=== PATIENT | male | born 2000 | race Caucasian/White ===

== ENCOUNTER 2023-04-01 12:17 | Outpatient (AMB) | payer BC, SELFPAY ==
--- NOTE | 2023-04-01 12:17 | MHC.OFFWIV ---
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 Patient Tobacco Use Status: Never used Tobacco Allergies No Known Allergies Allergy (Verified 04/01/23 12:26) Do you need a note to return to daycare/school/sports/work: No HPI HPI Comments History of Present Illness Details This is a 22-year-old male with no stated past medical history presenting for evaluation of a pulsating sensation that he has had in his left ear intermittently over the past 6 months. Patient states that he used to grind his teeth which would cause pain in his TMJ however does not feel that he grinds his teeth anymore. Patient denies any hearing deficit or overt pain in his left ear. Patient also denies any previous head injury. Patient recently moved from [facility] and does not currently have a primary care provider or dentist in the area. [facility] Social History Patient Tobacco Use Status: Never used Tobacco Review of Systems Const All systems reviewed & are unremarkable except as noted in HPI and below Eyes Reports as per HPI ENT Reports no additional complaints, Reports as per HPI (pulsating sensation left ear), Reports Normal hearing present, Denies vertigo, Denies dizziness and Denies hearing loss Card Reports as per HPI Resp Reports as per HPI Neuro Reports Normal hearing present, Denies vertigo and Denies dizziness Physical Exam Vital Signs: Last Vital Signs Temp 96.4 F L 04/01/23 12:28 Pulse 92 04/01/23 12:28 BP 110/62 04/01/23 12:28 Pulse Ox 98 04/01/23 12:28 Oxygen Delivery Method Room Air 04/01/23 12:28 BMI result Body Mass Index 29.1 Const General: cooperative, healthy appearing, comfortable and no acute distress Nutritional Appearance: average body habitus Orientation/consciousness: patient oriented x3 Limitations: no limitations HEENT Head: Yes normal to inspection Ears: hearing grossly normal bilaterally, external ears normal, TM's normal bilaterally and other (no foreign body left ear) Mouth: Normal oral and palatal mucosa present and moist mucous membranes Teeth and gingiva: dentition normal and gingiva normal Throat: Yes posterior oropharynx normal Neuro General: patient oriented x3 Cranial nerves: Yes Normal hearing present Psych Appearance: grossly normal Mental Status: mental status grossly normal Insight: Good insight present (Psych) Judgement: Good judgement present (Psych) Assessment & Plan Assessment & Plan (1) Abnormal sensation in left ear: Code(s): H93.8X2 - Other specified disorders of left ear Plan: Patient will follow-up with his dentist for evaluation of bruxism and obtain a referral from his new PCP to see ENT if this sensation persists; no abnormalities noted in ears bilaterally. Coding Level of Care Code New Pt Level 3 (02988) Diagnoses Abnormal sensation in left ear H93.8X2 Time Spent (min) 15
[2023-04-01 12:28] VITALS: BP 110/62; PULSE 92; TEMP 35.8; O2SAT 98; BMI 29.1
== END 2023-04-01 13:05 | disposition home or self-care (01) ==
PROVIDERS: PCP Family Medicine; Visit Provider Physician Assistant
DX: H93.8X2 Other specified disorders of left ear (principal)
CPT/HCPCS: 99203

== ENCOUNTER 2023-08-16 14:50 | Outpatient (AMB) | payer BC, SELFPAY ==
--- NOTE | 2023-08-16 15:11 | A.OFFPC_ITS ---
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 Patient is concerned of shaking of his body. 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 He notes he does vape a lot. He notes symptoms improve when he stops vaping. He notes pain is not particularly painful but does concern him. He denies any cough. He does report some GERD. Pt reports EtOH and MJ use. He reports a tremor. He reports he drinks on the weekends, 6 for the whole weekend [facility] Medical History (Updated 08/16/23 @ 16:15 by Bear Lima) Depression Anxiety Acute eczema Testicular pain Surgical History (Updated 08/16/23 @ 15:20 by Christin Odonnell CMA) [place] teeth extracted Family History (Updated 08/16/23 @ 15:24 by Christin Odonnell CMA) Father Alcohol abuse Mother Alcohol abuse Social History (Updated 08/16/23 @ 15:33 by Christin Odonnell CMA) Household Members: Family Housing: Apartment Are you a primary care aid to a significant other at home: No Do you presently have visiting nurse or other home services: No 75 years or older and lives alone: No Alcohol intake: current Comment: on weekends Patient Tobacco Use Status: Never used Tobacco e-Cigarette/Vaping Use: Currently Using Substance Use Type: Crack/Cocaine, Marijuana and Opiates Substance Use Type Other:: no more cocaine or percocets since high school, MJ once in a while, still. Have you been hit, kicked, punched, or otherwise hurt by someone within the past year? If so, by whom?: No Do you feel safe in your current relationship?: Yes Is there a partner from a previous relationship who is making you feel unsafe now?: No Are you made to feel afraid or neglected: No Special trini needs: No Are you DNR?: No Healthcare Proxy: No service: No Current occupational status: employed Cognitive needs: No Hearing needs: No Vision needs: No Questionnaire PHQ-9 Over the last 2 weeks, how often have you been bothered by any of the following problems? 1. Little interest or pleasure in doing things: several days 2. Feeling down, depressed, or hopeless: several days 3. Trouble falling or staying asleep, or sleeping too much: not at all 4. Feeling tired or having little energy: not at all 5. Poor appetite or overeating: more than half the days 6. Feeling bad about yourself - or that you are a failure or have let yourself or your family down: several days 7. Trouble concentrating on things, such as reading the newspaper or watching television: nearly every day 8. Moving or speaking so slowly that other people could have noticed. Or the opposite - being so fidgety or restless that you have been moving around a lot more than usual: not at all 9. Thoughts that you would be better off or of hurting yourself in some way: not at all Total score: 8 Depression Screening Interpretation: Positive Depression Screening Done: Yes 98353 - PHQ-9 Billing: Yes Source: Developed by Drs. Larry Kang, Kareen Mason, Orlando Flores and colleagues, with an educational bre from [employer]. Thrive Questionnaire Date Thrive assessed: 08/16/23 I am a: Patient What is your living situation today?: I have a place to live, but I am worried about losing it in the future Within the past 12 months, did the food you bought not last and you didn't have the money to get more?: Never true Within the past 12 months, did you worry whether your food would run out before you got money to buy more?: Never true Do you have trouble paying for medicines?: No Do you have trouble getting transportation to medical appointments?: No Do you have trouble paying your heating and electricity bill?: No Do you have trouble taking care of your child, family member or friend?: No Do you have trouble with day-to-day activities such as bathing, preparing meals, shopping, managing finances, etc.?: No Are you currently unemployed and looking for a job?: No Are you interested in more education?: Yes THRIVE Score: 1 AGUSTÍN-7 AMB Questionnaire AGUSTÍN-7 Date AGUSTÍN - 7 assessed: 08/16/23 Feeling nervous, anxious, or on edge: 1 = Several days Not being able to stop or control worryin = Several days Worrying too much about different things: 1 = Several days Trouble relaxin = Not at all Being so restless that it is hard to sit still: 0 = Not at all Becoming easily annoyed or irritable: 2 = More than half the days Feeling afraid as if something awful might happen: 0 = Not at all Total AGUSTÍN-7 score (0-4 normal; 5-9 mild; 10-14 moderate; 15-21 severe): 5 Source: Developed by Drs. Larry Kang, Kareen Mason, Orlando Flores and colleagues, with an educational bre from [employer]. AGUSTÍN-7 Assessment Billing AGUSTÍN-7 Assessment Tool: AGUSTÍN-7 Assessment 24035 Review of Systems Const Denies chills, Denies fatigue, Denies fever(s), Denies headache(s) and Denies weakness ENT Denies dizziness and Denies headache(s) Card Denies chest pain, Denies lightheadedness, Denies dyspnea and Denies other (Palpitations) Resp Denies cough, Denies dyspnea, Denies wheezing and Denies other ( shortness of breath) Musc Denies numbness and Denies tingling Neuro Denies dizziness, Denies headache(s), Denies numbness, Denies tingling, Denies paresthesias and Denies weakness Psych Denies anxiety and Denies depression Endo Denies fatigue Aller/Immun Denies wheezing Physical exam (Primary Care) Vital Signs: Last Vital Signs Pulse 74 08/16/23 15:14 BP 124/74 08/16/23 15:14 Pulse Ox 98 08/16/23 15:14 Oxygen Delivery Method Room Air 08/16/23 15:14 BMI result Body Mass Index 29.6 Tobacco/Smoking Status: Tobacco use Status Tobacco use date assessed 08/16/23 08/16/23 15:36 Patient Tobacco Use Status Never used Tobacco 08/16/23 15:33 e-Cigarette/Vaping Use Currently Using 08/16/23 15:36 PHQ-9: PHQ-9 Score PHQ-9: Total score 8 08/16/23 16:08 Depression Screening Interpretation: Positive Thrive Assessment: Date of Thrive Assessment Date Thrive assessed 08/16/23 08/16/23 15:36 Const General: no acute distress and well developed Nutritional Appearance: well nourished Orientation/consciousness: patient oriented x3 HENMT Head: Yes normocephalic and Yes atraumatic Eyes General: appearance normal, both eyes and all related structures Pupils: Equal, round and reactive pupils present EOM: EOMs intact bilaterally Resp Effort & Inspection: normal respiratory effort Auscultation: clear to auscultation bilaterally Cardio Rate: regular rate Rhythm: regular rhythm Heart sounds: S1 normal heart sound present, S2 normal heart sound present, no gallops, no murmurs and no rubs Neuro General: patient oriented x3 and gait normal Cranial nerves: Yes Equal, round and reactive pupils present Psych Affect: normal affect Assessment and Plan Assessment & Plan (1) Chest pain: Code(s): R07.9 - Chest pain, unspecified Plan: Focal?epigastric?and?left?sternal?border?pain Not?associated?with?exertion EKG:??Normal?sinus?rhythm,?normal?axis,?normal?intervals,?no?ST-T-wave?changes He?does?note that?is?pain?is?sometimes?associated?with?vaping Possible?bronchial?irritation Possible?GERD/esophageal?spasm Possible?costochondritis Will?follow-up?at?next?visit?but?I?advised?he?decrease/stop?vaping Also,?he?will?trial?omeprazole (2) GERD (gastroesophageal reflux disease): Code(s): K21.9 - Gastro-esophageal reflux disease without esophagitis Plan: Trial?omeprazole (3) Jaw pain: Code(s): R68.84 - Jaw pain Plan: Focal?pain?at?l eft?temporomandibular?joint?just?anterior?to?his?ear.??This?does?not?radiate. Worse?with?movement?of?his?jaw Mild?left-sided?TMJ Trial?ibuprofen?and?about?guard Follow-up?with?dentist (4) Tremor: Code(s): R25.1 - Tremor, unspecified Plan: Likely?secondary?to?use?of?alcohol?and?cannabis?products Advised?he?gradually?decrease?the We?can?follow-up?at?subsequent?visit Plan Questionnaire?mildly?positive?for?depression?and?negative/borderlin e?for?anxiety. Anxious?affect?however. This?may?be?secondary?to?alcohol?and?cannabis?as?well?as?vaping/nicotine?product s. Advised?decreasing?the Orders: Orders XR chest 2V Today R07.9 - Chest pain, unspecified Comprehensive [place]. Panel Fast Today Z00.00 - Encounter for general adult medical examination without abnormal findings Lipid Panel Today Z00.00 - Encounter for general adult medical examination without abnormal findings Vitamin B12 and Folate Today E53.8 - Deficiency of other specified B group vitamins Complete Blood Count Auto Diff Today Z00.00 - Encounter for general adult medical examination without abnormal findings Microalbumin, Random (w Creat) Today I10 - Essential (primary) hypertension TSH reflex Free T4 Today Z00.00 - Encounter for general adult medical examination without abnormal findings UA and rflx microscopic Today Z00.00 - Encounter for general adult medical examination without abnormal findings Medications: New omeprazole 40 mg PO DAILY 30 days 30 caps 2RF ibuprofen 600 mg PO Q8H 30 days PRN 90 tabs 0RF pain Coding Level of Care Code New Pt Level 3 (14882) Diagnoses Chest pain R07.9 GERD (gastroesophageal reflux disease) K21.9 Jaw pain R68.84 Tremor R25.1 Additional Codes AGUSTÍN-7 Assessment Billing - AGUSTÍN-7 Assessment Tool: AGUSTÍN-7 Assessment 02235 ([id number])
[2023-08-16 15:14] VITALS: BP 124/74; PULSE 74; O2SAT 98; BMI 29.6
== END 2023-08-16 16:39 | disposition home or self-care (01) ==
PROVIDERS: PCP Family Medicine; Visit Provider Family Medicine
DX: R07.9 Chest pain, unspecified (principal); K21.9 Gastro-esophageal reflux disease without esophagitis; R68.84 Jaw pain; R25.1 Tremor, unspecified
CPT/HCPCS: 99203

== ENCOUNTER 2023-08-19 15:41 | Outpatient (REF) | payer BC, SELFPAY ==
--- NOTE | ~2023-08-19 | XR_ITS ---
EXAMINATION: XR CHEST CLINICAL INFORMATION: Chest pain, unspecified. COMPARISON: None available. TECHNIQUE: 2 views of the chest were obtained. FINDINGS: There is no gross pneumothorax. Heart size is normal. No pleural effusion. No focal consolidation to suggest pneumonia. XR/XR chest 2V IMPRESSION: Unremarkable examination.
[2023-08-19 15:51] LABS: MANUAL DIFF FLAG NO
[2023-08-19 16:32] LABS: Basophils Absolute Auto 0.1 X10*3/uL (0.0-0.2); Basophils Percent Auto 0.5 % (0-2); Eosinophils Absolute Auto 0.1 X10*3/uL (0.0-0.4); Eosinophils Percent Auto 0.6 % (0-4); Hematocrit 41.3 % (42.0-52.0); Hemoglobin 14.8 g/dl (14.0-18.0); Imm Gran Abs Auto 0.03 X10*3/uL (0.00-0.03); Imm Gran Pct Auto 0.3 % (0.0-0.4); Lymphocytes Absolute Auto 2.6 X10*3/uL (1.2-4.9); Lymphocytes Percent Auto 24.3 % (20-40); Mean Corpuscular HGB Conc 35.8 g/dl (31.0-36.0); Mean Corpuscular Volume 83.6 fL (80.0-98.0); Mean Platelet Volume 9.1 fL (9.4-12.4); Monocytes Absolute Auto 0.8 X10*3/uL (0.1-1.2); Neutrophils Percent Auto 66.3 % (45-73); Platelet Count 286 X10*3/uL (160-400); Red Blood Count 4.94 X10*6/uL (4.60-5.80); Red Cell Distribution Width 11.9 % (11.0-16.0); White Blood Count 10.5 X10*3/uL (4.8-10.8)
[2023-08-19 17:07] LABS: Alanine Aminotransferase 19 U/L (0-40); Albumin Level 4.4 g/dL (3.5-5.0); Alkaline Phosphatase 61 U/L (39-117); Anion Gap 10 (12-20); Aspartate Amino Transferase 26 U/L (5-37); Bilirubin Total 0.5 mg/dL (0.0-1.0); Blood Urea Nitrogen 11 mg/dL (9-16); Calcium 9.1 mg/dL (8.4-10.2); Carbon Dioxide 29 mmol/L (22-29); Chloride 104 mmol/L (96-108); Cholesterol 175 mg/dL (<200); Estimated Glomerular Filt Rate > 60; Glucose Fasting 84 mg/dL (60-99); HDL Cholesterol 55 mg/dL (>40); LDL Cholesterol Calculated 104 mg/dL (<100); Potassium 3.8 mmol/L (3.3-5.1); Sodium 139 mmol/L (135-145); Total Protein 7.3 g/dL (6.5-8.0); Triglycerides 83 mg/dL (<150)
[2023-08-19 17:22] LABS: TSH reflex Free T4 1.41 uIU/mL (0.32-4.0)
[2023-08-19 17:35] LABS: Appearance Urine Clear; Color Urine Dark Yellow; Glucose Urine UA Negative (Negative); Leukocyte Esterase Urine Negative (Negative); Nitrite Urine Negative (Negative); Specific Gravity - Urine >= 1.030 (1.005-1.025); UMIC TRIGGER UA YES; Urine Blood Negative (Negative); Urine Ketones Trace mg/dL (Negative); Urine Protein 30 (1+) mg/dL (Neg-Trace)
[2023-08-19 17:35] LABS: Folate 10.4 ng/mL (> or = 4.0); Vitamin B12 471 pg/mL (200-900)
[2023-08-19 17:38] LABS: Bacteria Urine None Seen (None Seen); RBC Urine 0-2 /HPF (0-2); Squamous Epithelial Cell Urine 0-2 /HPF (0-2); WBC Urine 0-5 /HPF (0-5)
[2023-08-19 18:11] LABS: Creatinine Urine 397.52 mg/dL
== END 2023-08-19 15:42 | disposition home or self-care (01) ==
LOC: HO.XRAY 15:41
PROVIDERS: PCP Family Medicine; Visit Provider Family Medicine
DX: Z00.00 Encounter for general adult medical examination without abnormal findings (principal); E53.8 Deficiency of other specified B group vitamins; R07.9 Chest pain, unspecified; I10 Essential (primary) hypertension
CPT/HCPCS: 36415; 71046; 80053; 80061; 81001; 82043; 82570; 82607; 82746; 84443; 85025

== ENCOUNTER 2023-10-04 15:49 | Outpatient (AMB) | payer BC, SELFPAY ==
--- NOTE | 2023-10-04 15:51 | MHC.PC.OV ---
Vital Signs 10/04/23 15:53 Height 5 ft 8 in Weight 191 lb BMI 29.0 BP 112/62 Blood Pressure Location Lt brachial Position Sitting Pulse 70 Pulse Source Pulse Oximeter Pulse Oximetry (%) 98 Intake Visit Reasons: est care from Intake Note: Patient is here to establish care, would like to discuss jaw pain, and heartburn, chest pain, which had resolved. Allergies No Known Allergies Allergy (Verified 10/04/23 15:55) Medication List - Last Reconciled 10/04/23 by Dimitrios Roach MD bupropion HCl 75 mg PO DAILY 30 days ibuprofen 600 mg PO Q8H PRN 30 days omeprazole 40 mg PO DAILY 30 days Tobacco use date assessed: 10/04/23 Dental Screening Dental Screen Date: 08/16/23 HPI est care from HPI Details 23 y/o male presents to establish care and f/u chronic conditions. Also f/u focal chest pain, jaw pain, tremors. Chest x-ray 08/19/23 unremarkable. Labs were drawn 08/19/23. Reviewed labs with pt. Triglycerides 83. TC 175. LDL 104. HDL 55. Urine concentrated but otherwise labs were fine. Pt reports he has not noticed jaw pain much. He notes ongoing chest pain but notes this has been improving. He has trialed omeprazole which has been working well. FHx: Dad: Anxiety. Sister: Anxiety. pGF: Melanoma Pt reports EtOH. He reports he drinks on the weekends, 6 for the whole weekend. No drugs. Pt reports difficulty concentrating and would like referral to neuropsychiatry. [facility] Medical History Depression Anxiety Acute eczema Testicular pain Surgical History [place] teeth extracted Family History Father Alcohol abuse Mother Alcohol abuse Social History Household Members: Family Housing: Apartment Are you a primary animal care provider to a significant other at home: No Do you presently have visiting nurse or other home services: No 75 years or older and lives alone: No Alcohol intake: current Comment: on weekends Patient Tobacco Use Status: Never used Tobacco e-Cigarette/Vaping Use: Currently Using Substance Use Type: Crack/Cocaine, Marijuana and Opiates Special trini needs: No service: No Current occupational status: employed Cognitive needs: No Hearing needs: No Vision needs: No Questionnaire Thrive Questionnaire Date Thrive assessed: 08/16/23 AGUSTÍN-7 AMB Questionnaire AGUSTÍN-7 Date AGUSTÍN - 7 assessed: 08/16/23 Source: Developed by Drs. Larry Kang, Kareen Mason, Orlando Flores and colleagues, with an educational bre from [employer]. Review of Systems Const Denies chills, Denies fatigue, Denies fever(s), Denies headache(s) and Denies weakness ENT Denies dizziness and Denies headache(s) Card Reports chest pain, Denies lightheadedness, Denies dyspnea and Denies other (Palpitations) Resp Denies cough, Denies dyspnea, Denies wheezing and Denies other ( shortness of breath) Musc Denies numbness and Denies tingling Neuro Denies dizziness, Denies headache(s), Denies numbness, Denies tingling, Denies paresthesias and Denies weakness Psych Denies anxiety and Denies depression Endo Denies fatigue Aller/Immun Denies wheezing Physical exam (Primary Care) Vital Signs: Last Vital Signs Pulse 70 10/04/23 15:53 BP 112/62 10/04/23 15:53 Pulse Ox 98 10/04/23 15:53 BMI result Body Mass Index 29.0 Tobacco/Smoking Status: Tobacco use Status Tobacco use date assessed 10/04/23 10/04/23 16:00 Patient Tobacco Use Status Never used Tobacco 10/04/23 15:55 e-Cigarette/Vaping Use Currently Using 10/04/23 15:55 Thrive Assessment: Date of Thrive Assessment Date Thrive assessed 08/16/23 10/04/23 15:55 Const General: no acute distress and well developed Nutritional Appearance: well nourished Orientation/consciousness: patient oriented x3 HENMT Head: Yes normocephalic and Yes atraumatic Eyes General: appearance normal, both eyes and all related structures Pupils: Equal, round and reactive pupils present EOM: EOMs intact bilaterally Resp Effort & Inspection: normal respiratory effort Auscultation: clear to auscultation bilaterally Cardio Rate: regular rate Rhythm: regular rhythm Heart sounds: S1 normal heart sound present, S2 normal heart sound present, no gallops, no murmurs and no rubs Neuro General: patient oriented x3 and gait normal Cranial nerves: Yes Equal, round and reactive pupils present Psych Affect: normal affect Assessment and Plan Assessment & Plan (1) Chest pain: Code(s): R07.9 - Chest pain, unspecified Plan: Focal?chest?pain?to?the?left?of?sternum?which?is?sharp?and?comes?and?goes. EKG?at?prior?visit?was?unremarkable Chest?x-ray?was?negative He?does?have?some?GERD?which?has?been?well?treated?with?omeprazole. The?nature?of?this?discomfort?is?consistent?with?muscular?strain?or?costochondritis?and?we?discussed?treatment?such?as?stretching,?ice/heat?and?NSAIDs Also?discussed?that?if?no?other?cause?is?found?anxiety?is?another?cause?of?chest?pain. (2) GERD (gastroesophageal reflux disease): Code(s): K21.9 - Gastro-esophageal reflux disease without esophagitis Plan: Treated?with?omeprazole?which?he?can?continue (3) Tremor: Code(s): R25.1 - Tremor, unspecified Plan: He?has?been?decreasing?vaping?an?alcohol?and?mJ Improving (4) Jaw pain: Code(s): R68.84 - Jaw pain Plan: Improved?with?ibuprofen (5) Difficulty concentrating: Code(s): R41.840 - Attention and concentration deficit Plan: Ongoing?difficulty?concentrating?which?may?be?secondary?to?anxiety?or?may?have?ADHD?or?other?abnormality?of?focus Refer?to?neuropsych Trial?bupropion (6) Borderline anemia: Code(s): D64.9 - Anemia, unspecified Plan: Very?mild Will?repeat?CBC Orders: Orders Complete Blood Count Auto Diff Today D64.9 - Anemia, unspecified Referrals Neuropsychiatry Referral R41.840 - Attention and concentration deficit Medications: New bupropion HCl 75 mg PO DAILY 30 tabs 2RF 30 days Coding Level of Care Code Est Pt Level 4 (55677) Diagnoses Chest pain R07.9 GERD (gastroesophageal reflux disease) K21.9 Tremor R25.1 Jaw pain R68.84 Difficulty concentrating R41.840 Borderline anemia D64.9
[2023-10-04 15:53] VITALS: BP 112/62; PULSE 70; O2SAT 98; BMI 29.0
== END 2023-10-04 16:27 | disposition home or self-care (01) ==
PROVIDERS: PCP Family Medicine; Visit Provider Family Medicine
DX: R07.9 Chest pain, unspecified (principal); K21.9 Gastro-esophageal reflux disease without esophagitis; R25.1 Tremor, unspecified; R68.84 Jaw pain; R41.840 Attention and concentration deficit; D64.9 Anemia, unspecified
CPT/HCPCS: 99214

== ENCOUNTER 2024-08-16 12:47 | Outpatient (REF) | payer BC, SELFPAY ==
--- OUTSIDE RECORDS SUMMARY | 2024-08-16 12:55 | XMS_ITS | Clinical Summary ---
Author Organization [facility] Address [address] [place] [address] Care Team Providers Care Elastic Yarn Twister Name Role Phone Unavailable Primary Care Provider Unavailabl e Source Comments PLEASE NOTE, if this patient is a minor, it may be UNLAWFUL to discuss sensitive information that is contained in these records (such as FAMILY PLANNING, MENTAL HEALTH or SUBSTANCE ABUSE) with the minor patient's parent or other person without the patient's specific authorization.[facility] Allergies No known active allergies Medications No known medications Active Problems Problem Noted Date Diagnosed Date Heartburn 03/01/2019 Class 1 obesity due to exces s calories without serious comorbidity with body mass index (BMI) of 31.0 to 31.9 in adult 03/01/2019 Cannabis abuse, daily use 03/01/2019 Enlarged tonsils 03/01/2019 Immunizations Name Administration Dates Next Due DTAP (DAPTACEL),5 PERTUSSIS ANTIGENS 12/2005,02/15/2002,02/08/2001,2000,2000 Flu, Preservative Free 05/12/2021 HEP B, PED/ADOL 05/13/2001,2000,2000 HPV 9 (Gardasil) 05/12/2021 Hep A, Ped/adol, 2 Dose 02/13/2013 Hep A, adult 05/12/2021 Hib (PRP-OMP) 11/14/2001, 1,2000,2000 INFLUENZA, SEASONAL, INJECTABLE 04/14/2009,03/14 IPV 05/15/2001,2000,2000 MENINGOCOCCAL MPSV4 02/13/2013 MMR (MMR II/Priorix) 09/06/2005,11/14/2001 PNEUMOCOCCAL CONJUGATE PCV 7 02/08/2001,12/07/19,2000 TDAP 02/13/2013 Varicella, Live Vaccine 08/07/2001 Family History Medical History Relation Name Comments Arthritis Maternal Grandfather Heart Problems Maternal Grandfather Hypertension Maternal Grandfather Arthritis Maternal Grandmother Depression Maternal Grandmother Mental illness Maternal Grandmother Relation Name Status Comments Father Alive Maternal Grandfather Maternal Grandmother Mother Alive Sister Alive Social History Tobacco Use Types Packs/Day Years Used Date Smoking Tobacco: Every Day Smokeless Tobacco: Never Tobacco Cessation:Counseling Given: Yes Comments:marijuana Alcohol Use Standard Drinks/Week Comments Yes 0 (1 standard drink = 0.6 oz pur e alcohol) Social Connections Answer Date Recorded Connectedness 0 03/11/2024 Financial Resource Strain Answer Date R ecorded Financial Resource Strain 0 2018 Stress Answer Date Recorded Stress 0 03/01/2019 Physical Activity Answer Date Recorded Physical Activity 0 03/01/2019 Food Insecurity Answer Date Recorded Food 0 05/12/2021 Transportation Needs Answer Date Record ed Transportation 0 05/12/2021 Housing Stability Answer Date Recorded Housing 0 05/12/2021 Safety and Environment Answer Date [place] rded Safety 0 03/01/2019 Utilities Answer Date Recorded Utilities 0 05/12/2021 Employment Answer Date Recorded Stress 0 05/12/2021 Sex and Gender Information Value Date Recorded Sex Assigned at Not on file Legal Sex Male 1:27 PM PDT Gender Identity Not on file Sexual Orientation Not on file Last Filed Vital Signs Vital Sign Reading Time Taken Comments Blood Pressure 122/70 05/12/2021 12:05 PM EST Pulse 90 05/12/2021 12:05 PM EST Temperature 35.9 ??C (96.6 ??F) 05/12/2021 12:[address] Respiratory Rate - - Oxygen Saturation 98% 05/12/2021 12:05 PM EST Inhaled Oxygen Concentration - - Weight 89.4 kg (197 lb) 05/12/2021 12:05 PM EST Height 175.3 cm (5' 9 ) 05/12/2021 12:05 PM EST Body Mass Index 29.09 05/12/2021 12:05 PM EST Plan of Treatment Health Maintenance Due Date Last Done Comments Hepatitis C Screening 2000 Tobacco Screening 2000 Imm-Varicella (2 of 2 - 2-do se childhood series) 2004 08/07/2001 HIV Screening 2015 Imm-Pneumococcal (1 of 2 - PCV) 2019 02/08/2001, 2000, 2000 Imm-HPV (2 - Male 3-dose series) 06/09/2021 05/12/20 21 Annual Preventive Care Visit 05/12/2022 05/12/2021, 03/01/2019 Tobacco Cessation Counseling (#1) 05/12/2022 [id number] (1 - season) 2024 Imm-Influenza (#1) 2024 05/12/2021, 1 , 03/14/2009 Hypertension Screening (#1) 05/11/2024 Alcohol and Drug Screen 07/04/2024 05/12/2021, 03/01 Depression Annual Screen 07/04/2024 05/12/2021 Imm-DTaP/Tdap/Td (8 - Td or Tdap) 08/19/2032 08/19/2022, 02/13/2013, 09/06/2005, Additional history exists Imm-Hepatitis B Completed 05/13/2001, 01/2001, 2000 Insurance [facility] Member Subscriber Plan / Payer (Ef fective 2007-Present) Name:Josef Galarza Relation to Subscriber:Self Name:Josef Galarza Payer ID:[id number] Group ID:[id number] Type:Indemnity Address: [facility] [id number] [place] [address]
[2024-08-16 14:05] LABS: MANUAL DIFF FLAG NO
[2024-08-16 14:16] LABS: Basophils Percent Auto 0.5 % (0-2); Eosinophils Percent Auto 0.4 % (0-4); Hematocrit 45.7 % (42.0-52.0); Hemoglobin 16.2 g/dl (14.0-18.0); Imm Gran Abs Auto 0.02 X10*3/uL (0.00-0.03); Imm Gran Pct Auto 0.3 % (0.0-0.4); Lymphocytes Absolute Auto 1.9 X10*3/uL (1.2-4.9); Lymphocytes Percent Auto 24.5 % (20-40); Mean Corpuscular HGB Conc 35.4 g/dl (31.0-36.0); Mean Corpuscular Volume 81.8 fL (80.0-98.0); Mean Platelet Volume 8.9 fL (9.4-12.4); Monocytes Absolute Auto 0.8 X10*3/uL (0.1-1.2); Monocytes Percent Auto 10.8 % (2-11); Neutrophils Absolute Auto 4.9 x10*3/uL (2.0-8.3); Neutrophils Percent Auto 63.5 % (45-73); Platelet Count 306 X10*3/uL (160-400); Red Blood Count 5.59 X10*6/uL (4.60-5.80); White Blood Count 7.7 X10*3/uL (4.8-10.8)
== END 2024-08-16 12:48 | disposition home or self-care (01) ==
LOC: HO.WFDLDS 12:47
PROVIDERS: Visit Provider Family Medicine
DX: D64.9 Anemia, unspecified (principal)
CPT/HCPCS: 36415; 85025

== ENCOUNTER 2024-08-22 08:53 | Outpatient (AMB) | payer BC, SELFPAY ==
--- OUTSIDE RECORDS SUMMARY | 2024-08-22 08:56 | XMS_ITS | Clinical Summary ---
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 Role Phone Unavailable Primary Care Provider [...] 05/12/2021, 03/01/2019 Tobacco Cessation Counseling (#1) 05/12/2022 Iva-VRGUS-02 (1 - season) 2024 Imm-Influenza (#1) 2024 05/12/2021, 1 , 03/14/2009 Hypertension Screening (#1) 05/11/2024 Alcohol and Drug Screen 07/04/2024 05/12/2021, 03/01 Depression Annual Screen 07/04/2024 05/12/2021 Imm-DTaP/Tdap/Td (8 - Td or Tdap) 08/19/2032 08/19/2022, 02/13/2013, 09/06/2005, Additional history exists Imm-Hepatitis B Completed 05/13/2001, 01/2001, 2000 Insurance [facility] Member Subscriber Plan / Payer (Ef fective 2007-Present) Name:Josef Galarza Relation to Subscriber:Self Name:Josef Galarza Payer ID:[id number] Group ID:[id number] Type:Indemnity Address: [facility] [id number] [place] [address]
--- NOTE | 2024-08-22 08:58 | MHC.PC.OV ---
Vital Signs 08/22/24 08:59 Height 5 ft 8 in Weight 194 lb 8 oz BMI 29.6 BP 118/68 Blood Pressure Location Lt brachial Position Sitting Pulse 72 Pulse Source Pulse Oximeter Pulse Oximetry (%) 98 Oxygen Delivery Method Room Air Intake Visit Reasons: PE Allergies eucalyptus Allergy (Mild, Verified 08/22/24 09:01) Hives Medication List - Last Reconciled 08/22/24 by Dimitrios Roach MD bupropion HCl 75 mg PO BID 30 days ibuprofen 600 mg PO Q8H PRN 30 days omeprazole 40 mg PO DAILY 30 days Tobacco use date assessed: 08/22/24 Dental Screening Dental Screen Date: 08/22/24 Did you have a dental visit in the last 12 months?: Yes Did you have a dental problem in the last 6 months where you did not have access to dental care?: No Was dental information given to patient?: Patient has dentist HPI PE HPI Details 24 y/o male presents for a CPE with f/u labs and [facility]. No recent CPE-labs to review. Borderline anemia has improved. PHQ-9 5, AGUSTÍN-7 12 today. Has not been contacted by neuropsych yet for difficulty concentrating. Has tried bupropion but notes it did not do much. Notes he has been smoking a little more. [facility] Medical History Depression Anxiety Acute eczema Testicular pain Surgical History Elizabeth teeth extracted Family History Father Alcohol abuse Mother Alcohol abuse Social History Household Members: Family Housing: Apartment Are you a primary care director rn to a significant other at home: No Do you presently have visiting nurse or other home services: No 75 years or older and lives alone: No Alcohol intake: current Comment: on weekends Patient Tobacco Use Status: Never used Tobacco e-Cigarette/Vaping Use: Currently Using Substance Use Type: Crack/Cocaine, Marijuana and Opiates Special trini needs: No service: No Current occupational status: employed Cognitive needs: No Hearing needs: No Vision needs: No Questionnaire PHQ-9 Over the last 2 weeks, how often have you been bothered by any of the following problems? 1. Little interest or pleasure in doing things: not at all 2. Feeling down, depressed, or hopeless: several days 3. Trouble falling or staying asleep, or sleeping too much: not at all 4. Feeling tired or having little energy: not at all 5. Poor appetite or overeating: several days 6. Feeling bad about yourself - or that you are a failure or have let yourself or your family down: several days 7. Trouble concentrating on things, such as reading the newspaper or watching television: more than half the days 8. Moving or speaking so slowly that other people could have noticed. Or the opposite - being so fidgety or restless that you have been moving around a lot more than usual: not at all 9. Thoughts that you would be better off or of hurting yourself in some way: not at all Total score: 5 Depression Screening Interpretation: Negative Depression Screening Done: Yes 83990 - PHQ-9 Billing: Yes Source: Developed by Drs. Larry Kang, Kareen Mason, Orlando Flores and colleagues, with an educational bre from [employer] Thrive Questionnaire Date Thrive assessed: 08/22/24 I am a: Patient What is your living situation today?: I have a place to live, but I am worried about losing it in the future Within the past 12 months, did the food you bought not last and you didn't have the money to get more?: Never true Within the past 12 months, did you worry whether your food would run out before you got money to buy more?: Sometimes True Do you have trouble paying for medicines?: No Do you have trouble getting transportation to medical appointments?: No Do you have trouble paying your heating and electricity bill?: I choose not to answer this question Do you have trouble taking care of your child, family member or friend?: I choose not to answer this question Do you have trouble with day-to-day activities such as bathing, preparing meals, shopping, managing finances, etc.?: No Are you currently unemployed and looking for a job?: Yes Are you interested in more education?: Yes Please select the resources that you would like help with: None Currently or been in a relationship where the following occur: No concerns reported THRIVE Score: 2 AUDIT C Alcohol Use Questionnaire (AUDIT-C) 1. How often do you have a drink containing alcohol?: 2-3 times a week 2. How many drinks containing alcohol do you have on a typical day when you are drinking?: 1 or 2 3. How often do you have six or more drinks on one occasion?: Less than monthly Total Score: 4 AGUSTÍN-7 AMB Questionnaire AGUSTÍN-7 Date AGUSTÍN - 7 assessed: 08/22/24 Feeling nervous, anxious, or on edge: 2 = More than half the days Not being able to stop or control worryin = Several days Worrying too much about different things: 3 = Nearly every day Trouble relaxin = More than half the days Being so restless that it is hard to sit still: 1 = Several days Becoming easily annoyed or irritable: 3 = Nearly every day Feeling afraid as if something awful might happen: 0 = Not at all Total AGUSTÍN-7 score (0-4 normal; 5-9 mild; 10-14 moderate; 15-21 severe): 12 Source: Developed by Drs. Larry Kang, Kareen Mason, Orlanod Flores and colleagues, with an educational bre from [employer] AGUSTÍN-7 Assessment Billing AGUSTÍN-7 Assessment Tool: AGUSTÍN-7 Assessment 24823 Review of Systems Const Denies chills, Denies fatigue, Denies fever(s), Denies headache(s) and Denies weakness Eyes Denies change in vision ENT Denies dizziness and Denies headache(s) Card Denies chest pain, Denies lightheadedness, Denies dyspnea and Denies other (Palpitations) Resp Denies cough, Denies dyspnea, Denies wheezing and Denies other ( shortness of breath) GI Denies abdominal pain, Denies melena, Denies hematochezia, Denies change in bowel habits, Denies dyspepsia and Denies nausea Denies hematuria and Denies dysuria Musc Denies numbness and Denies tingling Skin/Breast Denies rash, Denies unusual bruising and Denies wounds Neuro Denies dizziness, Denies headache(s), Denies numbness, Denies Sensory deficit (Neuro), Denies tingling, Denies paresthesias and Denies weakness Psych Reports anxiety and Denies depression Endo Denies fatigue Felipe/Lymph Denies easy bleeding and Denies easy bruising Aller/Immun Denies wheezing Physical exam (Primary Care) Vital Signs: Last Vital Signs Pulse 72 08/22/24 08:59 BP 118/68 08/22/24 08:59 Pulse Ox 98 08/22/24 08:59 Oxygen Delivery Method Room Air 08/22/24 08:59 BMI result Body Mass Index 29.6 Tobacco/Smoking Status: Tobacco use Status Tobacco use date assessed 08/22/24 08/22/24 09:03 Patient Tobacco Use Status Never used Tobacco 08/22/24 09:03 e-Cigarette/Vaping Use Currently Using 08/22/24 09:03 PHQ-9: PHQ-9 Score PHQ-9: Total score 5 08/22/24 09:03 Depression Screening Interpretation: Negative Thrive Assessment: Date of Thrive Assessment Date Thrive assessed 08/22/24 08/22/24 09:03 Currently or been in a relationship where the following occur: No concerns reported Const General: no acute distress and well developed Nutritional Appearance: well nourished Orientation/consciousness: patient oriented x3 HENMT Head: Yes normocephalic and Yes atraumatic Ears: hearing grossly normal bilaterally and TM's normal bilaterally General nose exam: Normal external nose present and Normal nares present Mouth: Normal oral and palatal mucosa present and moist mucous membranes Teeth and gingiva: dentition normal Throat: Yes posterior oropharynx normal Eyes General: appearance normal, both eyes and all related structures Pupils: Equal, round and reactive pupils present EOM: EOMs intact bilaterally Neck Neck: Yes normal visual inspection, Yes no lymphadenopathy and Yes trachea midline Thyroid: Thyroid normal Carotids: no bruits Lymphatic: no lymphadenopathy noted Chest Chest palpation & inspection: normal inspection of the chest Resp Effort & Inspection: normal respiratory effort Auscultation: clear to auscultation bilaterally Cardio Rate: regular rate Rhythm: regular rhythm Heart sounds: S1 normal heart sound present, S2 normal heart sound present, no gallops, no murmurs and no rubs Bruits: no abdominal aortic bruits and no carotid bruits GI Palpation (GI): No Abdominal aortic bruit present, Soft to palpation, nontender, No hepatosplenomegaly present and No Rebound tenderness present Auscultation: normal bowel sounds General: Yes no CVA tenderness Back/Spine/Pelvis Back: no CVA tenderness Cervical Spine: cervical ROM normal and No Cervical spine tenderness Thoracic/Lumbar Spine: thoraco-lumbar ROM normal, No pain with thoraco-lumbar ROM, No thoracic spinal tenderness and No lumbar spinal tenderness Skin Lesions: no lesions Rashes: no rashes Trauma: no lacerations or abrasions Wounds: no wounds Nails: normal Neuro General: patient oriented x3 and gait normal Cranial nerves: Yes Equal, round and reactive pupils present Cognition (Neuro): normal cognition Gait exam (Neuro): Normal gait present Motor exam (neuro): 5/5 motor strength present throughout Sensory Exam: No Sensory deficit (Neuro) Deep tendon reflexes (DTR's): Right patellar reflex intensity grade: 2+ and Left patellar reflex intensity grade: 2+ Extrem General: Yes normal to inspection and No edema Psych Appearance: grossly normal Affect: normal affect Attitude: cooperative Thought process: Normal thought process present Coding Level of Care Code Est Pt Level 3 (66051) Est Pt Prev Care 18-39y(47034) Diagnoses Adult general medical exam Z00.00 Anxiety with depression F41.8 Difficulty concentrating R41.840 Smoker F17.200 Additional Codes AGUSTÍN-7 Assessment Billing - AGUSTÍN-7 Assessment Tool: AGUSTÍN-7 Assessment 65878 ([id number]) PHQ-9 - 61997 - PHQ-9 Billing: Yes ([id number]) Assessment & Plan Assessment & Plan (1) Adult general medical exam: Code(s): Z00.00 - Encounter for general adult medical examination without abnormal findings Category: Medical Plan: 24-year-old?male?presents?for?complete?physical?exam Exam?normal?limits except as described below Encouraged?healthy?diet?with?active?lifestyle?and?exercise (2) Anxiety with depression: Code(s): F41.8 - Other specified anxiety disorders Category: Medical Plan: Mildly?anxious?but?cooperative. Had?given?him?a?script?for?bupropion?to?help?with?concentration?and?anxiety?but?he?has?not?continued?it.??He?had?no?adverse?effects?from?this. Will?have?him?try?this?again?and?can?increase?the?dose?to?75?mg?b.i.d. May?also?help?with?smoking?cessation?as?he?has?resumed?vaping (3) Difficulty concentrating: Code(s): R41.840 - Attention and concentration deficit Category: Medical Plan: Ongoing?difficulty?with?concentration. Had?referred?him?for?testing?but?he?has?been?not?been?contacted. Gave?him?the?phone?number?for?the?specialist. Also?will?resume?bupropion?to?see?if?this?helps?at?dose (4) Smoker: Code(s): F17.200 - Nicotine dependence, unspecified, uncomplicated Category: Social Hx Plan: Patient?has?resumed?vaping Increasing?bupropion?may?help?with?cessation. Encouraged?cessation Medications: Changed From bupropion HCl 75 mg PO DAILY 30 days 30 tabs 2RF To bupropion HCl 75 mg PO BID 30 days 60 tabs 2RF
[2024-08-22 08:59] VITALS: BP 118/68; PULSE 72; O2SAT 98; BMI 29.6
== END 2024-08-22 10:06 | disposition home or self-care (01) ==
PROVIDERS: PCP Family Medicine; Visit Provider Family Medicine
DX: Z00.00 Encounter for general adult medical examination without abnormal findings (principal); R41.840 Attention and concentration deficit; F41.8 Other specified anxiety disorders; F17.200 Nicotine dependence, unspecified, uncomplicated

== ENCOUNTER → 2024-08-22 08:53 | Outpatient (BNVA) | payer BC, SELFPAY | PROVIDERS: PCP Family Medicine; Visit Provider Family Medicine | DX: Z00.00 Encounter for general adult medical examination without abnormal findings (principal); F41.8 Other specified anxiety disorders; R41.840 Attention and concentration deficit; F17.200 Nicotine dependence, unspecified, uncomplicated | CPT/HCPCS: 96127 ==